=== PATIENT | female | born 1945 | race Caucasian/White ===

== ENCOUNTER 2017-09-01 12:39 | Emergency (ER) | payer MEDICARE, BC ==
[2017-09-01 13:02] VITALS: BP 150/80
--- NOTE | 2017-09-01 13:09 | UC ---
Upper Extremity HPI - HPI Summary HPI Summary: Pt presents with left elbow pain after falling this morning. She tells me that she has a ~2 foot high fence around her yard and was at the neighbor's house. She turned and lost her footing, tripped over the fence, and landed on her left flexed elbow. Did not hit her head. She felt and heard her elbow pop and it seemed out of place, when she went to get up - she felt it pop again and felt back into place. She is currently having mild pain and is holding her elbow flexed against her abdomen. She has not taken anything for pain and presented to directly after this fall. - History of Current Complaint Chief Complaint: UCUpperExtremity Stated Complaint: LEFT ELBOW INJURY (FALL) Time Seen by Provider: 09/01/17 12:44 Hx Obtained From: Patient Hx Last Menstrual Period: n/a ?: No Onset/Duration: Sudden Onset Severity Initially: Mild Severity Currently: Mild Pain Intensity: 3 Pain Scale Used: 0-10 Numeric - Allergies/Home Medications Allergies/Adverse Reactions: Allergies Allergy/AdvReac Type Severity Reaction Status Date / Time No Known Allergies Allergy Verified 05/12/15 18:30 PMH/Surg Hx/FS Hx/Imm Hx Previously Healthy: Yes Endocrine History: Hypothyroidism, Dyslipidemia Cardiovascular History: Hypertension - Surgical History Surgical History: Yes Surgery Procedure, Year, and Place: Left breast marker for altered tissue - Social History Occupation: Retired Lives: With Family Alcohol Use: Daily Alcohol Amount: One wine q violet Substance Use Type: None Smoking Status (MU): Former Smoker When Did the Patient Quit Smoking/Using Tobacco: 2004 Review of Systems Constitutional: Negative Skin: Negative Neurovascular: Negative Musculoskeletal: Edema - Left elbow, Other: - Pain left elbow Neurological: Negative Psychological: Negative All Other Systems Reviewed And Are Negative: Yes Physical Exam Triage Information Reviewed: Yes Appearance: Well-Appearing, Well-Nourished Vital Signs: Initial Vital Signs Temp 97.3 F 09/01/17 12:55 Pulse 64 09/01/17 12:55 Resp 20 09/01/17 12:55 BP 150/80 09/01/17 12:55 Vital Signs Reviewed: Yes Neck: Positive: Supple, No Lymphadenopathy, Other: - FROM. NTTP. Respiratory: Positive: Chest non-tender, Lungs clear, Normal breath sounds, No respiratory distress, No accessory muscle use Cardiovascular: Positive: RRR, No Murmur, Pulses Normal - Left UE Musculoskeletal: Positive: Strength Intact - Left wrist, elbow, and shoulder, ROM Intact - Left wrist, elbow, and shoulder., Edema @ - Left medial elbow., Other: - TTP over medial aspect of left elbow. She is able to pronate and supinate with mild pain at the medial aspect of left elbow. No obvious bony deformities, but difficult to assess due to degree of edema. Neurological: Positive: Alert, Muscle Tone Normal, Other: - C4-T1 sensations intact. CN II-XII grossly intact. Psychological: Positive: Age Appropriate Behavior Skin: Negative: rashes, significant lesion(s) Upper Extremity Course/Dx - Course Course Of Treatment: XR: Calcification adjacent to the medial epicondyles for which an avulsion cannot BE excluded. There is a fat pad sign suggestive of a joint effusion. RICE. Sling. STEVEN wrap. F/u this week with ortho - Differential Dx/Diagnosis Differential Diagnosis/HQI/PQRI: Fracture (Closed), Hematoma, Strain, Sprain Provider Diagnoses: Left elbow sprain. Fall Discharge - Discharge Plan Condition: Stable Disposition: HOME Patient Education Materials: Elbow Sprain (ED) Referrals: Lynne Charles MD [Primary Care Provider] - Jignesh Obando MD [Medical Doctor] - As Soon As Possible Additional Instructions: 1) Rest and Ice your elbow. Take ibuprofen 400mg every 6 hours as needed for pain. 2) Wear your sling until able to see Orthopedics this week. 3) Please call Orthopedics at the number below to schedule a follow up appointment for sometime this week. If you develop a fever, SOB, chest pain, new or worsening symptoms - please call your PCP or go to the ED. Your blood pressure was high at todays visit. Please see your primary provider within 4 weeks for recheck and re-evaluation.
--- NOTE | 2017-09-01 13:15 | RAD ---
Indication: Fall, left elbow pain. 4 views of left elbow demonstrates calcification at the medial epicondyles. An avulsion off the medial epicondyles be excluded. There is an anterior fat pad sign suggestive of a joint effusion. IMPRESSION: Calcification adjacent to the medial epicondyles for which an avulsion cannot BE excluded. There is a fat pad sign suggestive of a joint effusion.
== END 2017-09-01 14:06 | disposition home or self-care (01) ==
LOC: UCCORT 12:39
DX: S53.402A Unspecified sprain of left elbow, initial encounter (principal); W01.0XXA Fall on same level from slipping, tripping and stumbling without subsequent striking against object, initial encounter; Y93.9 Activity, unspecified; Y92.096 Garden or yard of other non-institutional residence as the place of occurrence of the external cause; E03.9 Hypothyroidism, unspecified; E78.5 Hyperlipidemia, unspecified; I10 Essential (primary) hypertension; Z87.891 Personal history of nicotine dependence
CPT/HCPCS: 99212; G0463